=== PATIENT | female | born 1950 | race American Indian/Alaskan Native ===

== ENCOUNTER 2018-06-28 07:30 | Observation (INO) | payer MEDICARE ==
--- NOTE | 2018-06-23 10:50 | Anesthesia Consultation ---
Anesthesia Consult and Med Hx Date of service: 06/23/18 - Airway Anesthetic Teeth Evaluation: Good ROM Head & Neck: Adequate Mental/Hyoid Distance: Adequate Mallampati Class: Class II Intubation Access Assessment: Good - Pulmonary Exam CTA: Yes - Cardiac Exam Cardiac Exam: RRR - Pre-Operative Health Status ASA Pre-Surgery Classification: ASA3 Proposed Anesthetic Plan: General - Pulmonary Hx Sleep Apnea: Yes - Cardiovascular System Hx Hypertension: Yes (2006) - Central Nervous System Hx Psychiatric Problems: No - Other Systems Hx Alcohol Use: Yes (SELDOM) Hx Substance Use: No Hx Obesity: Yes
[~2018-06-28 07:30] MED LIST: LACTATED RINGERS 1,000 ML IV SCH; TYLENOL PO NR
[2018-06-28] MEDS: LACTATED RINGERS 1,000 ML IV SCH ×2 (11:55→20:16)
[2018-06-28] MEDS ORDERED: REGLAN IV PRN (12:36)
[2018-06-28] MEDS ORDERED: APRESOLINE IV PRN (12:36)
[2018-06-28] MEDS ORDERED: MYLICON PO PRN (12:36)
[2018-06-28] MEDS ORDERED: ZOFRAN IV PRN (12:36)
[2018-06-28] MEDS ORDERED: FLAGYL 500 MG/100 ML 500 MG/100 ML BAG IV NR (13:00)
[2018-06-28] MEDS ORDERED: ANCEF/STERILE WATER 2 GM/20 ML 2 GM/20 ML SYRINGE IV NR (13:00)
[2018-06-28] MEDS ORDERED: LOVENOX SUB-Q NR (13:00)
[2018-06-28] MEDS ORDERED: TRANSDERM-SCOP TD SCH (13:00)
[2018-06-28] MEDS ORDERED: XYLOCAINE MPF 2% ONE (13:37)
[2018-06-28] MEDS ORDERED: ZEMURON IV ONE (13:37)
[2018-06-28] MEDS ORDERED: SUBLIMAZE ONE (13:37)
[2018-06-28] MEDS ORDERED: DIPRIVAN 10 MG/ML IV ONE (13:38)
[2018-06-28] MEDS ORDERED: MARCAINE-EPI 0.5%-1:200,000 INFILTRATI ONE (14:15)
[2018-06-28] MEDS ORDERED: NACL 0.9% IR ONE (14:15)
[2018-06-28] MEDS ORDERED: XYLOCAINE 1% 20 mL INFILTRATI ONE (14:15)
[2018-06-28] MEDS ORDERED: SUBLIMAZE IV PRN (14:47)
--- NOTE | 2018-06-28 14:47 | Anesthesia Day of Surgery ---
Anesthesia Day of Surgery - Day of Surgery Patient Examined: Yes Patient H&P Reviewed: Yes Patient is NPO: Yes
[2018-06-28] MEDS ORDERED: LACTATED RINGERS 1,000 ML ONE (15:31)
[2018-06-28] MEDS ORDERED: NEO SYNEPHRINE/NS Syringe(OR USE) IV ONE (15:31)
[2018-06-28] MEDS ORDERED: DILAUDID ONE (16:29)
[2018-06-28] MEDS: DILAUDID IV PRN ×2 (20:00→23:10)
[2018-06-28] MEDS: NEURONTIN PO SCH (23:39)
[2018-06-28] MEDS: DITROPAN PO SCH (23:39)
[2018-06-29] MEDS: NORCO PO PRN ×2 (02:52→07:57)
[2018-06-29] MEDS: NEURONTIN PO SCH ×2 (06:35→13:56)
--- NOTE | 2018-06-29 07:32 | Discharge Summary ---
Providers - Providers Date of Admission: 06/28/18 10:26 Date of discharge: 06/29/18 Attending physician: MILLER HEADLEY Hospitalization Reason for admission: postop Condition: Good Procedures: 06/28/18: Laparoscopic band removal converted to sleeve gastrectomy Hospital course: 68F admitted after her operation for routine monitoring. She had no issues. Tolerated a diet, pain controlled, ambulated, and dc pOD1. Disposition: DC-01 TO HOME OR SELFCARE Core Measure Documentation - Palliative Care Palliative Care/ Comfort Measures: Not Applicable - Core Measures Any of the following diagnoses?: none - VTE Discharge Requirements Deep Vein Thrombosis/Pulmonary Embolism Present on Admission: No - Acute CT Discharge Requirements Aspirin at discharge: Yes - Heart Failure Discharge Requirements ZARA/ARB for LVSD if EF <40%: Not Applicable - Stroke Discharge Requirements Statin for LDL = or >70 mg/dl on DC: Not Applicable Exam - Physical Exam Narrative exam: Gen: AAO, NAD Heart: RRR Lungs: CTAB Abd: Soft, obese, NT, ND, bandages cdi - Constitutional Vitals: Temp Pulse Resp BP Pulse Ox 98.6 F 87 17 112/61 96 06/29/18 04:43 06/29/18 04:43 06/29/18 04:43 06/29/18 04:43 06/29/18 04:43 Plan Diet: clear liquids Wound: keep clean and dry Special Instructions: no heavy lifting Additional Instructions: clara Headley as scheduled Follow up with: ALEXIS YEBOAH [Other] - 7 Days
[2018-06-29 07:51] LABS: Basophils % (Auto) 0.4 % (0.0-1.8); Eosinophils % (Auto) 0.1 % (0.0-4.3); Hematocrit 37.2 % (30.3-42.9); Hemoglobin 12.3 gm/dl (10.1-14.3); Lymphocytes # (Auto) 1.1 K/mm3 (1.2-5.4); Lymphocytes % (Auto) 14.6 % (13.4-35.0); Mean Corpuscular HGB Conc 33 % (30-34); Mean Corpuscular Volume 85 fl (79-97); Monocytes # (Auto) 0.8 K/mm3 (0.0-0.8); Monocytes % (Auto) 10.6 % (0.0-7.3); Platelet Count 187 K/mm3 (140-440); Red Blood Count 4.37 M/mm3 (3.65-5.03); Red Cell Distribution Width 14.6 % (13.2-15.2)
[2018-06-29 08:14] LABS: Alanine Aminotransferase 86 units/L (7-56); Albumin 3.3 g/dL (3.9-5); BUN/Creatinine Ratio 10; Blood Urea Nitrogen 6 mg/dL (7-17); Calcium 8.6 mg/dL (8.4-10.2); Hemolysis Index 13
[2018-06-29] MEDS ORDERED: BABY ASPIRIN PO SCH (10:00)
[2018-06-29] MEDS ORDERED: LOVENOX SUB-Q SCH (10:00)
[2018-06-29] MEDS ORDERED: HCTZ PO SCH (10:00)
[2018-06-29] MEDS ORDERED: NORVASC PO SCH (10:00)
[2018-06-29] MEDS: DITROPAN PO SCH (10:36)
[2018-06-29 11:40] VITALS: BP 130/73
== END 2018-06-29 15:45 | disposition home or self-care (01) ==
LOC: 3A 10:26 → INTOOBSV 10:26 → 3B-SURG 17:31
PROVIDERS: ADMIT Specialist; ATTEND Specialist
DX: E66.01 Morbid (severe) obesity due to excess calories (principal); R10.13 Epigastric pain; K21.9 Gastro-esophageal reflux disease without esophagitis; I10 Essential (primary) hypertension; D64.9 Anemia, unspecified; K95.09 Other complications of gastric band procedure; Z98.84 Bariatric surgery status; Z68.42 Body mass index [BMI] 45.0-49.9, adult; Z98.890 Other specified postprocedural states; Z79.82 Long term (current) use of aspirin; Z79.899 Other long term (current) drug therapy
CPT/HCPCS: 36415; 43280; 43775; 80053; 85025; 88302; 88307; 96372; 96374; 96375; 96376; G0378; G0379; J0360; J0690; J1170; J1650; J2370; J2405; J2704; J2765; J3010; J7120